=== PATIENT | female | born 1930 | race Caucasian/White ===

== ENCOUNTER 2016-10-09 03:10 | Observation (INO) | payer MEDICARE, BC ==
[2016-10-09] VITALS (15 sets, daily range): BP systolic 128–182; BP diastolic 64–93; PULSE 61–86; RESP 16–20; TEMP 97.6–98.4; O2SAT 95–99
[~2016-10-09] VITALS: Ht 152.4 cm; Wt 57.3 kg
[~2016-10-09 03:10] MED LIST: ASPI81 PO; CALCTAB75 PO; CETI10 PO; DILT240C7 PO; FURO20 PO; KLOR20TA6 PO; LEVO.05 PO; TYLE500T PO; VITA20002 PO; WARF2.5 PO
[2016-10-09] MEDS ORDERED: SODIUM CHLORIDE 0.9% FLUSH 5 ML FLUSH IVF PRN (03:30)
--- NOTE | 2016-10-09 03:32 | PD ---
HPI Chief Complaint: chest pain Time Seen by Provider: 03:22 Travel History International Travel<30 days: No Contact w/Intl Traveler<30days: No Traveled to known affect area: No History of Present Illness HPI The patient is an 85-year-old female that complains of a heaviness in her chest for 20 minutes tonight. The pain is constant and substernal. She has shortness of breath but denies any nausea or diaphoresis. The pain radiates down her arms. The pain is an 8/10. She is on Coumadin and has a pacemaker. She has a porcine aortic valve. She is on Coumadin because she has blood clots in her legs. Dr. Mckeon is her primary care physician and Dr. Yeh is her navy senior officer. She has a history of hypertension. The patient probably does not have coronary artery disease. Her last stress test was in 2010. She has never had a coronary angiogram. She does have elevated cholesterol. She does not smoke. She does not have diabetes. PFSH Past Medical History Arthritis: Yes Asthma: No Autoimmune Disease: No Blood Disorders: No Anxiety: No Depression: No Heart Rhythm Problems: No Cancer: No Cardiac Catheterization: No Cardiovascular Problems: Yes High Cholesterol: No Chemotherapy: No Chest Pain: No Congestive Heart Failure: No COPD: No Cerebrovascular Accident: No Coronary Artery Disease: Yes Diabetes: No Diminished Hearing: Yes (HEARING AIDS) Endocrine: Yes (HYPOTHYROIDISM) Gastrointestinal Disorders: Yes GERD: Yes Genitourinary: No Headaches: No Hepatitis: No Hiatal Hernia: No Hypertension: No (? ) Immune Disorder: No Kidney Stones: No Musculoskeletal: Yes Neurologic: Yes (SPINAL STENOSIS) Psychiatric: No Reproductive: No Respiratory: No Migraines: No Myocardial Infarction: No Radiation Therapy: No Renal Failure: No Seizures: No Sleep Apnea: No Thyroid Disease: No Ulcer: No Menopausal: Yes Past Surgical History Abdominal Surgery: No Appendectomy: No Cardiac Surgery: Yes (CARDIAC VALVE REPLACEMENT) Cholecystectomy: No Coronary Artery Bypass Graft: Yes (AORTIC STENOSIS- HAD VALVE REPLCED 03/2010) Ear Surgery: No Endocrine Surgery: No Eye Surgery: No Genitourinary Surgery: Yes Gynecologic Surgery: No Oral Surgery: No Thoracic Surgery: No Valve Replacement: Yes (AORTIC VALVE REPLACED 03/2010 R/T STENOSIS) Other Surgery: Yes Social History Alcohol Use: No Tobacco Use: No Substance Use: No Allergies-Medications (Allergen,Severity, Reaction): Coded Allergies: Botox (Verified Allergy, Severe, HIVES, 10/09/16) Nonsteroidal Anti-Inflammatory Agts (Verified Allergy, Severe, 10/09/16) Penicillin (Verified Allergy, Severe, 10/09/16) Sudafed (Verified Allergy, Severe, 10/09/16) Daypro (Verified Allergy, Unknown, 10/09/16) Tetanus Toxoid (Verified Allergy, Unknown, 10/09/16) Reported Meds & Prescriptions Reported Meds & Active Scripts Active Reported Sertraline (Sertraline HCl) 50 Mg Tab 50 Mg PO DAILY Vitamin B Complex (B-Complex Vitamins) 1 Tab Biotin 5,000 Mcg Subl 5,000 Mcg SL Vitamin D (Cholecalciferol) 1,000 Unit Tab 2,000 Units PO DAILY Calcium 600 with Vitamin D (Calcium Carbonate-Cholecalciferol) 600-400 mg-Unit Tab 1 Tab PO DAILY Prilosec (Omeprazole) 20 Mg Cap 20 Mg PO DAILY Aspirin 81 Mg Chew 81 Mg CHEW DAILY Potassium Chloride ER (Potassium Chloride) 20 Meq Tab 20 Meq PO BID Furosemide 20 Mg Tab 20 Mg PO DAILY Levothyroxine (Levothyroxine Sodium) 50 Mcg Tab 50 Mcg PO DAILY Warfarin 2.5 Mg Tab 2.5 Mg PO DAILY Diltiazem ER 24 HR 240 Mg Caper 240 Mg PO DAILY Review of Systems Except as stated in HPI: all other systems reviewed are Neg Physical Exam Narrative GENERAL: The patient is alert, oriented 3 and slight apparent distress with her chest discomfort. The blood pressure is 182/85 but the rest her vital signs are normal. SKIN: Warm and dry. HEAD: Atraumatic. Normocephalic. EYES: Pupils equal and round. No scleral icterus. No injection or drainage. ENT: No nasal bleeding or discharge. Mucous membranes pink and moist. NECK: Trachea midline. No JVD. CARDIOVASCULAR: Regular paced rhythm. No murmur appreciated. RESPIRATORY: No accessory muscle use. Clear to auscultation. Breath sounds equal bilaterally. GASTROINTESTINAL: Abdomen soft, non-tender, nondistended. Hepatic and splenic margins not palpable. No guarding or rebound is present. MUSCULOSKELETAL: No obvious deformities. No clubbing. No cyanosis. No edema. NEUROLOGICAL: Awake and alert. No obvious cranial nerve deficits. Motor grossly within normal limits. Normal speech. PSYCHIATRIC: Appropriate mood and affect; insight and judgment normal. Data Data Last Documented VS Vital Signs Date Time Temp Pulse Resp B/P Pulse Ox O2 Delivery O2 Flow Rate FiO2 10/09/16 04:44 18 10/09/16 04:20 70 128/64 10/09/16 04:19 97 Nasal Cannula 2 10/09/16 03:24 98.4 Orders Electrocardiogram (10/09/16 03:22) B-Type Natriuretic Peptide (10/09/16 03:22) Ckmb (Isoenzyme) Profile (10/09/16 03:22) Complete Blood Count With Diff (10/09/16 03:22) Comprehensive Metabolic Panel (10/09/16 03:22) Magnesium (Mg) (10/09/16 03:22) Prothrombin Time / Inr (Pt) (10/09/16 03:22) Troponin I (10/09/16 03:22) Ecg Monitoring (10/09/16 03:22) Iv Access Insert/Monitor (10/09/16 03:22) Oximetry (10/09/16 03:22) Oxygen Administration (10/09/16 03:22) Sodium Chloride 0.9% Flush (Ns Flush) (10/09/16 03:30) Nitroglycerin Sl (Nitrostat Sl) (10/09/16 03:30) Chest, Pa & Lat (10/09/16 03:22) CKMB (10/09/16 03:35) CKMB% (10/09/16 03:35) Admit Order (Ed Use Only) (10/09/16 04:59) Labs Laboratory Tests Test 10/09/16 03:35 White Blood Count 7.9 TH/MM3 Red Blood Count 5.23 MIL/MM3 Hemoglobin 14.6 GM/DL Hematocrit 44.1 % Mean Corpuscular Volume 84.2 FL Mean Corpuscular Hemoglobin 27.9 PG Mean Corpuscular Hemoglobin 33.1 % Concent Red Cell Distribution Width 15.3 % Platelet Count 219 TH/MM3 Mean Platelet Volume 8.2 FL Neutrophils (%) (Auto) 37.2 % Lymphocytes (%) (Auto) 47.0 % Monocytes (%) (Auto) 9.8 % Eosinophils (%) (Auto) 5.2 % Basophils (%) (Auto) 0.8 % Neutrophils # (Auto) 2.9 TH/MM3 Lymphocytes # (Auto) 3.7 TH/MM3 Monocytes # (Auto) 0.8 TH/MM3 Eosinophils # (Auto) 0.4 TH/MM3 Basophils # (Auto) 0.1 TH/MM3 CBC Comment DIFF FINAL Differential Comment Prothrombin Time 18.6 SEC Prothromb Time International 1.6 RATIO Ratio Sodium Level 145 MEQ/L Potassium Level 3.4 MEQ/L Chloride Level 108 MEQ/L Carbon Dioxide Level 25.9 MEQ/L Anion Gap 11 MEQ/L Blood Urea Nitrogen 17 MG/DL Creatinine 1.10 MG/DL Estimat Glomerular Filtration 47 ML/MIN Rate Random Glucose 94 MG/DL Calcium Level 9.3 MG/DL Magnesium Level 2.3 MG/DL Total Bilirubin 0.5 MG/DL Aspartate Amino Transf 22 U/L (AST/SGOT) Alanine Aminotransferase 18 U/L (ALT/SGPT) Alkaline Phosphatase 83 U/L Total Creatine Kinase 103 U/L Creatine Kinase MB 1.7 NG/ML Troponin I LESS THAN 0.02 NG/ML B-Type Natriuretic Peptide 106 PG/ML Total Protein 7.7 GM/DL Albumin 3.7 GM/DL [facility] Medical Decision Making Medical Screen Exam Complete: Yes Emergency Medical Condition: Yes Medical Record Reviewed: Yes Interpretation(s) The EKG shows a paced rhythm with a rate of 89. March or the EKG shows a sinus rhythm. She appears to have a left bundle-branch block. No acute changes noted. The CBC is essentially normal. The complete metabolic profile shows a potassium 3.4 with GFR 47 and creatinine 1.1 but is otherwise unremarkable. The BNP is 106. The troponin I is normal. The ProTime is 18.6 with an INR 1.6. I do not have any EKGs after 2013 to compare today's EKG with. Differential Diagnosis Chest wall pain, pleuritic pain, esophageal pain, gastrointestinal pain, acute coronary syndrome, chest pain etiology undetermined Narrative Course It is now 0449 and the patient's chest pain has gone down to approximately 6/10. Procedures EKG Prior to Arrival: No Physician Communication Physician Communication I discussed the patient with Dr. Heredia who recommended that the patient be admitted to the hospitalist and Dr. Yeh be consulted in the morning. I discussed the patient also with Dr. Cortez will admit the patient here at [place]. Diagnosis Primary Impression: Chest pain of unknown etiology Sven Summers MD Oct 09, 2016 03:32
[2016-10-09] MEDS: NITROGLYCERIN 0.4 MG SL 25 TABS/BTL SL SCH ×3 (03:54→04:27)
[2016-10-09 03:57] LABS: AUTOMATED NEUTROPHIL # 2.9 TH/MM3 (1.8-7.7); BASOPHIL # 0.1 TH/MM3 (0-0.2); BASOPHIL % 0.8 % (0.0-2.0); EOSINOPHIL # 0.4 TH/MM3 (0-0.4); EOSINOPHIL % 5.2 % (0.0-4.0); HEMATOCRIT 44.1 % (35.0-46.0); HEMO FLAGS DIFF FINAL; LYMPHOCYTE # 3.7 TH/MM3 (1.0-4.8); MEAN CELL VOLUME 84.2 FL (80.0-100.0); MEAN CORPUSCULAR HEMOGLOBIN 27.9 PG (27.0-34.0); MEAN CORPUSCULAR HGB CONC 33.1 % (32.0-36.0); MONO % 9.8 % (0.0-8.0); NEUT % 37.2 % (16.0-70.0); PLATELET COUNT 219 TH/MM3 (150-450); RED BLOOD COUNT 5.23 MIL/MM3 (4.00-5.30); RED CELL DISTRIBUTION WIDTH 15.3 % (11.6-17.2); WHITE BLOOD COUNT 7.9 TH/MM3 (4.0-11.0)
[2016-10-09 04:03] LABS: CHLORIDE 108 MEQ/L (98-107); POTASSIUM 3.4 MEQ/L (3.5-5.1); SODIUM (NA) 145 MEQ/L (136-145)
[2016-10-09 04:06] LABS: INTERNATIONAL NORMALIZED RATIO 1.6 RATIO; PROTHROMBIN TIME - PATIENT 18.6 SEC (9.8-11.6)
[2016-10-09 04:08] LABS: ANION GAP 11 MEQ/L (5-15); BICARBONATE 25.9 MEQ/L (21.0-32.0); MAGNESIUM 2.3 MG/DL (1.5-2.5)
[2016-10-09 04:09] LABS: BLOOD UREA NITROGEN 17 MG/DL (7-18)
[2016-10-09 04:11] LABS: ALT (GPT) 18 U/L (10-53); AST (GOT) 22 U/L (15-37)
[2016-10-09 04:12] LABS: GLOMERULAR FILTRATION RATE 47 ML/MIN (>89)
[2016-10-09 04:13] LABS: TOTAL BILIRUBIN ADULT 0.5 MG/DL (0.2-1.0)
[2016-10-09 04:14] LABS: ALKALINE PHOSPHATASE 83 U/L (45-117); CREATINE KINASE 103 U/L (26-192)
[2016-10-09] MEDS ORDERED: ASPI81CH CHEW (04:16)
[2016-10-09] MEDS ORDERED: CALC1TAB87 PO (04:16)
[2016-10-09] MEDS ORDERED: POTA-163 PO (04:16)
[2016-10-09] MEDS ORDERED: FURO20TA PO (04:16)
[2016-10-09] MEDS ORDERED: WARF-18 PO (04:16)
[2016-10-09] MEDS ORDERED: PRIL20CA9 PO (04:16)
[2016-10-09] MEDS ORDERED: LEVO50TA4 PO (04:16)
[2016-10-09] MEDS ORDERED: DILT-48 PO (04:16)
[2016-10-09] MEDS ORDERED: VITA100064 PO (04:16)
[2016-10-09] MEDS ORDERED: BIOT1SUB SL (04:18)
[2016-10-09] MEDS ORDERED: SERT-132 PO (04:18)
[2016-10-09] MEDS ORDERED: VITATAB11 (04:18)
[2016-10-09 04:27] LABS: CKMB 1.7 NG/ML (0.5-3.6)
--- NOTE | 2016-10-09 04:29 | RADHPO ---
EXAM DATE/TIME: 10/09/2016 03:42 [facility] COMPARISON: CHEST PA & LAT, December 11, 2013, 9:17. INDICATIONS : Chest pain. MEDICAL HISTORY : Hypertension. SURGICAL HISTORY : Pacemaker. Aortic valve replacement ENCOUNTER: Initial ACUITY: 1 day PAIN SCORE: 8/10 LOCATION: Bilateral chest FINDINGS: Cardiomegaly and sternotomy wires are again seen. There is hyperinflation. Pacer device from a left s ubclavian transvenous approach is noted. No consolidation or effusion. CONCLUSION: No acute disease. Reji Grubbs MD on October 09, 2016 at 4:27 Board Certified Radiologist. This report was verified electronically.
[2016-10-09] MEDS ORDERED: SODIUM CHLORIDE 0.9% FLUSH 5 ML FLUSH FLUSH PRN (05:45)
[2016-10-09] MEDS ORDERED: NALOXONE HCL 0.4 MG/ML AMP IV PRN (05:45)
[2016-10-09 07:18] LABS: CREATINE KINASE 86 U/L (26-192)
[2016-10-09] MEDS ORDERED: SERTRALINE HCL 50 MG TAB PO SCH (11:00)
--- NOTE | 2016-10-09 11:17 | EKG ---
Date Performed: 10/09/2016 Time Performed: 03:14:02 PTAGE: 85 years EKG: Demand ventricular pacing. Left axis deviation Abnormal ECG PREVIOUS TRACING : 12/11/2013 08.57 DOCTOR: Alejandro Delgado Interpretating Date/Time 10/09/2016 11:15:55
[2016-10-09] MEDS ORDERED: PANTOPRAZOLE SOD 20 MG DELAYED RELEASE TAB PO SCH (11:30)
--- NOTE | 2016-10-09 12:32 | MB ---
cc: CARISSA YEH M.D., SOUHI[place] DATE OF CONSULTATION: 10/09/2016 REASON FOR CONSULTATION: Cardiology consultation. HISTORY OF PRESENT ILLNESS: Thank you Dr. Cervantes for asking us to see this very pleasant patient that had chest pain for 20 minutes. At this point she does not have any chest pain, her heart rate is about 70, she has a history of deep venous thrombosis after aortic valve surgery. She had a stress test in 2010. She does not smoke. PAST MEDICAL HISTORY: 1. Positive for arthritis. 2. Asthma. 3. Positive aortic stenosis with aortic valve stenosis. 4. Biopsy studies of 2009. 5. Congestive heart failure 6. Mitral regurgitation. 7. Gastroesophageal reflux disease 8. Deep venous thrombosis 9. Tricuspid insufficiency 10. Dental implant. PAST SURGICAL HISTORY: Pacemaker placement. FAMILY HISTORY: Positive for daughter having angina. Other problems include; hypothyroidism, deafness, spinal stenosis. SOCIAL HISTORY: Nonsmoker, non-drinker, no drugs. ALLERGIES PENICILLIN BOTOX NONSTEROIDAL ANTI-INFLAMMATORY DRUGS SUDAFED DAYQUIL TETANUS REVIEW OF SYSTEMS Denies seizure, headache, pulmonary, the remaining components negative. PHYSICAL EXAMINATION: VITAL SIGNS : Pulse 70, Blood pressure 128/64, respiratory rate 18. HEENT: Eyes show no xanthelasma. Mouth shows no cyanosis or pallor. NECK: No jugular venous distention. HEART: She had to two heart sounds, no murmur. CHEST: The chest was clear. ABDOMEN: The abdomen was soft, no hepatosplenomegaly. EXTREMITIES: No evidence of edema. NEUROLOGIC: Exam grossly intact. SKIN: Intact. NECK: Sternotomy, on palpation of the chest did not reduce this pain. LABORATORY FINDINGS: White count 7.9, hemoglobin 14.6. Platelet count 219,000. RADIOLOGIC: Electrocardiogram today showed a paced rhythm with a rate of 89. ASSESSMENT AND PLAN: We will do a D-Dimer to exclude pulmonary embolism. If this is positive we may have to consider a CT angiogram. She has a pacemaker so she will not be tachycardic and has a history of deep venous thrombosis. Thank you for asking us to see this very pleasant lady. Carissa Yeh MD, FRCP,[facility] JUAN/jessica /10:24 AM /12:26 PM
[2016-10-09] MEDS: DILTIAZEM-CD 240 MG CAP ER PO SCH (12:55)
[2016-10-09] MEDS: PANTOPRAZOLE SOD 20 MG DELAYED RELEASE TAB PO SCH (12:56)
[2016-10-09] MEDS: POTASSIUM CHLORIDE 20 MEQ CONTROLLED RELEASE TAB PO SCH ×2 (12:56→20:28)
[2016-10-09] MEDS: LEVOTHYROXINE SODIUM 50 MCG TAB PO SCH (12:56)
[2016-10-09] MEDS: ASPIRIN 81 MG CHEW TAB CHEW SCH (12:56)
[2016-10-09] MEDS: FUROSEMIDE 20 MG TAB PO SCH (12:57)
[2016-10-09] MEDS: SODIUM CHLORIDE 0.9% FLUSH 5 ML FLUSH FLUSH SCH ×2 (12:57→20:29)
--- NOTE | 2016-10-09 14:59 | HHI.HP ---
HPI Service [facility] Hospitalists Primary Care Physician Sarah Alaniz MD Admission Diagnosis chest pain etiology undetermined Diagnoses: Chief Complaint: Chest pain Shortness of breath Travel History International Travel<30 Days: No Contact w/Intl Traveler <30 Da: No Traveled to Known Affected Are: No History of Present Illness This is a 85-year-old female with a past medical history significant for previous pacemaker implantation, hypertension, history of DVT following aortic valve surgery currently on Coumadin , dyslipidemia, hypothyroidism and GERD who presents to [facility] ED with complaints of chest pain. Patient states she awoke at 2:00 this morning with elevated blood pressure with systolic of 180 and substernal chest heaviness as well as an achy sensation in both arms. Patient reports associated shortness of breath. She denies any aggravating factors but states she did get some relief after taking 3 nitroglycerin after arriving at the ED. She denies any associated headache, vision changes, weakness, cough, sore throat, palpitations, nausea, vomiting, abdominal pain, hematuria, dysuria, hematochezia or melena. She has complaints of some pain in the center of her upper back. She does report some intermittent dizziness which is not new and not associated with her onset of chest pain this morning. She also reports occasional swelling of the hands and feet as well as some achiness in the hands and she has not been able to wear her rings but this is not new. She had a previous stress test in 2010. In the ED, patient's EKG showed a paced rhythm with a heart rate of 89. Dr. Yeh has already been consulted. At his request, a d-dimer was ordered and was elevated. Chest x-ray is unremarkable. BNP 106. Review of Systems Constitutional: COMPLAINS OF: Dizziness (intermittent, not currently symptomatic), DENIES: Diaphoretic episodes, Fever, Chills Endocrine: DENIES: Polydipsia, Polyuria Eyes: DENIES: Blurred vision, Diplopia, Vision loss Ears, nose, mouth, throat: DENIES: Nasal discharge, Throat pain, Running Nose, Sinus Pain Respiratory: COMPLAINS OF: Shortness of breath (as stated in the history of present illness), DENIES: Cough, Wheezing, Hemoptysis, Sputum production Cardiovascular: COMPLAINS OF: Chest pain (as stated in the history of present illness), Lower Extremity Edema (intermittent, chronic), DENIES: Palpitations, Syncope Gastrointestinal: DENIES: Abdominal pain, Black stools, Bloody stools, Diarrhea , Nausea, Vomiting Genitourinary: DENIES: Hematuria, Dysuria Musculoskeletal: COMPLAINS OF: Muscle aches (occasional swelling and aches in the hands), DENIES: Back pain, Neck pain Integumentary: DENIES: Pruritus, Rash Hematologic/lymphatic: DENIES: Lymphadenopathy Immunologic/allergic: DENIES: Urticaria Neurologic: DENIES: Headache, Localized weakness, Paresthesias, Seizures, Speech Problems Psychiatric: DENIES: Confusion, Mood changes, Depression Past Family Social History Past Medical History History of aortic stenosis status post porcine aortic valve replacement CHF History of DVT following aortic valve replacement surgery Hypertension Dyslipidemia Hypothyroidism Spinal stenosis Osteoarthritis GERD Past Surgical History Porcine aortic valve replacement approximately 10 years ago Pacemaker implantation Reported Medications Sertraline (Sertraline HCl) 50 Mg Tab 50 Mg PO DAILY Vitamin B Complex (B-Complex Vitamins) 1 Tab Biotin 5,000 Mcg Subl 5,000 Mcg SL Vitamin D (Cholecalciferol) 1,000 Unit Tab 2,000 Units PO DAILY Calcium 600 with Vitamin D (Calcium Carbonate-Cholecalciferol) 600-400 mg-Unit Tab 1 Tab PO DAILY Prilosec (Omeprazole) 20 Mg Cap 20 Mg PO DAILY Aspirin 81 Mg Chew 81 Mg CHEW DAILY Potassium Chloride ER (Potassium Chloride) 20 Meq Tab 20 Meq PO BID Furosemide 20 Mg Tab 20 Mg PO DAILY Levothyroxine (Levothyroxine Sodium) 50 Mcg Tab 50 Mcg PO DAILY Warfarin 2.5 Mg Tab 2.5 Mg PO DAILY Diltiazem ER 24 HR 240 Mg Caper 240 Mg PO DAILY Allergies: Coded Allergies: Botox (Verified Allergy, Severe, HIVES, 10/09/16) Nonsteroidal Anti-Inflammatory Agts (Verified Allergy, Severe, 10/09/16) Penicillin (Verified Allergy, Severe, 10/09/16) Sudafed (Verified Allergy, Severe, 10/09/16) Daypro (Verified Allergy, Unknown, 10/09/16) Tetanus Toxoid (Verified Allergy, Unknown, 10/09/16) Active Ordered Medications Current Medications Medications (Trade) Dose Ordered Sig/Mathew Route Start Time Stop Time Status Last Admin (NS Flush) 2 ml UNSCH PRN FLUSH 10/09/16 05:45 (NS Flush) 2 ml BID FLUSH 10/09/16 09:00 10/09/16 12:57 (Narcan Inj) 0.4 mg UNSCH PRN IV 10/09/16 05:45 (Aspirin Chew) 81 mg DAILY CHEW 10/09/16 11:00 10/09/16 12:56 (Oscal-D 250-125) 250 mg DAILY PO 10/10/16 09:00 (Cardizem Cd) 240 mg DAILY PO 10/09/16 11:00 10/09/16 12:55 (Lasix) 20 mg DAILY PO 10/09/16 11:00 10/09/16 12:57 (Synthroid) 50 mcg DAILY@0600 PO 10/09/16 11:00 10/09/16 12:56 (KCl) 20 meq BID PO 10/09/16 11:00 10/09/16 12:56 (Zoloft) 50 mg DAILY PO 10/09/16 11:00 10/09/16 12:56 (Coumadin) 2.5 mg DAILY@1600 PO 10/09/16 16:00 (Coumadin Booklet) 1 ONCE ONCE XX 10/09/16 16:00 10/09/16 16:01 (Protonix) 20 mg DAILY PO 10/09/16 11:45 10/09/16 12:56 Family History Father, previous [place] age 65 Mother, age 94 Social History Patient has a remote history of infrequent tobacco use 30-40 years ago. She denies any alcohol consumption or illicit drug use. She is and lives with her . Physical Exam Vital Signs Vital Signs Date Time Temp Pulse Resp B/P Pulse Ox O2 Delivery O2 Flow Rate FiO2 10/09/16 12:00 97.6 67 20 144/84 99 10/09/16 08:04 64 10/09/16 08:00 98.1 67 20 156/78 98 10/09/16 07:02 18 98 Nasal Cannula 2 10/09/16 07:02 98 Nasal Cannula 10/09/16 07:02 61 18 154/73 98 Nasal Cannula 2 10/09/16 07:02 98 Nasal Cannula 2 10/09/16 06:40 69 18 151/76 98 Nasal Cannula 2 10/09/16 05:35 66 18 145/93 97 Nasal Cannula 2 10/09/16 04:44 18 10/09/16 04:20 70 128/64 10/09/16 04:19 66 18 143/71 97 Nasal Cannula 2 10/09/16 04:02 73 18 151/69 97 Nasal Cannula 2 10/09/16 03:55 65 161/77 10/09/16 03:41 18 95 Room Air 10/09/16 03:41 95 Room Air 10/09/16 03:29 85 18 95 Room Air 10/09/16 03:24 98.4 86 18 182/85 95 Physical Exam GENERAL: This is a well-nourished, well-developed patient, in no apparent distress. A&Ox3. SKIN: No rashes, ecchymoses or lesions. Cool and dry. HEAD: Atraumatic. Normocephalic. No temporal or scalp tenderness. EYES: Pupils equal round and reactive. Extraocular motions intact. No scleral icterus. No injection or drainage. ENT: Nose without bleeding, purulent drainage or septal hematoma. Throat without erythema, tonsillar hypertrophy or exudate. Uvula midline. Airway patent. NECK: Trachea midline. No JVD or lymphadenopathy. Supple, nontender, no meningeal signs. CARDIOVASCULAR: Regular rate and rhythm without gallops, or rubs. 3/6 systolic murmur appreciated with increased S2. RESPIRATORY: Clear to auscultation. Breath sounds equal bilaterally. No wheezes , rales, or rhonchi. GASTROINTESTINAL: Abdomen soft, non-tender, nondistended. No hepato-splenomegaly , or palpable masses. No guarding. MUSCULOSKELETAL: Extremities without clubbing, cyanosis, or edema. No joint tenderness, effusion, or edema noted. No calf tenderness. NEUROLOGICAL: Awake and alert. Able to move all 4 extremities. No focal neurologic deficits appreciated on exam. Laboratory Laboratory Tests Test 10/09/16 10/09/16 10/09/16 03:35 06:40 09:35 White Blood Count 7.9 Red Blood Count 5.23 Hemoglobin 14.6 Hematocrit 44.1 Mean Corpuscular Volume 84.2 Mean Corpuscular Hemoglobin 27.9 Mean Corpuscular Hemoglobin 33.1 Concent Red Cell Distribution Width 15.3 Platelet Count 219 Mean Platelet Volume 8.2 Neutrophils (%) (Auto) 37.2 Lymphocytes (%) (Auto) 47.0 Monocytes (%) (Auto) 9.8 Eosinophils (%) (Auto) 5.2 Basophils (%) (Auto) 0.8 Neutrophils # (Auto) 2.9 Lymphocytes # (Auto) 3.7 Monocytes # (Auto) 0.8 Eosinophils # (Auto) 0.4 Basophils # (Auto) 0.1 CBC Comment DIFF FINAL Differential Comment Prothrombin Time 18.6 Prothromb Time International 1.6 Ratio Sodium Level 145 Potassium Level 3.4 Chloride Level 108 Carbon Dioxide Level 25.9 Anion Gap 11 Blood Urea Nitrogen 17 Creatinine 1.10 Estimat Glomerular Filtration 47 Rate Random Glucose 94 Calcium Level 9.3 Magnesium Level 2.3 Total Bilirubin 0.5 Aspartate Amino Transf 22 (AST/SGOT) Alanine Aminotransferase 18 (ALT/SGPT) Alkaline Phosphatase 83 Total Creatine Kinase 103 86 83 Creatine Kinase MB 1.7 Troponin I LESS THAN 0.02 LESS THAN 0.02 0.02 B-Type Natriuretic Peptide 106 Total Protein 7.7 Albumin 3.7 D-Dimer Quantitative (PE/DVT) 0.65 Result Diagram: 10/09/16 0335 10/09/16 0335 Imaging Last 48 hours Impressions Chest X-Ray 10/09/16 0322 Signed Impressions: Service Date/Time: Sunday, October 09, 2016 03:42 - CONCLUSION: No acute disease. Reji Grubbs MD Assessment and Plan Assessment and Plan 85-year-old female with a past medical history significant for previous pacemaker implantation, hypertension, history of DVT following aortic valve surgery currently on Coumadin, dyslipidemia, hypothyroidism and GERD who presents to [facility] ED with complaints of chest pain. Chest pain with typical and atypical features - Admit to observation - Dr. Yeh consulted in the ED and has already evaluated patient, very much appreciate his assistance. Discussed with Dr. Yeh who does not believe further cardiac workup is indicated at this time and is concerned about possible pulmonary embolus. D-dimer was ordered and was elevated. CTA pending. - Troponins negative 3 - 81 mg aspirin daily - Telemetry - Supplemental oxygen Hypokalemia - po repletion and am labs to monitor MEETA - Mild - Avoid nephrotoxic agents - am labs to monitor trend Hypertension - Resume home meds - Monitor BP CHF - Resume home Lasix dose - Monitor electrolytes, mild hypokalemia on admission, resume home by mouth potassium repletion - No evidence of fluid overload on examination, we'll continue to monitor History of DVT - Continue home warfarin dose - INR 1.6, not at goal - Recheck in a.m. Hypothyroidism - Resume home levothyroxine - Obtain TSH level GERD - Resume home Protonix DVT prophylaxis - Patient on warfarin Written by Laurie Murphy PA-C acting as scribe for Dr. Cervantes on 10/09/16 at 12:43. Laurie Murphy Oct 09, 2016 14:59 Laurie Murphy Oct 09, 2016 14:59
[2016-10-09] MEDS ORDERED: IOHEXOL 350 MG/ML 10 ML VIAL (for RAD DIAG) IV ONE (15:19)
[2016-10-09] MEDS ORDERED: WARFARIN SOD 2.5 MG TAB PO SCH (16:00)
--- NOTE | 2016-10-09 16:18 | RADHPO ---
EXAM DATE/TIME: 10/09/2016 15:02 [facility] COMPARISON: No previous studies available for comparison. INDICATIONS : Substernal chest pain and short of breath. IV CONTRAST: 75 cc Omnipaque 350 (iohexol) IV RADIATION DOSE: 5.54 CTDIvol (mGy) MEDICAL HISTORY : Cardiovascular disease. Hypertension. Deep venous thrombosis.Anticoagulant therapy. SURGICAL HISTORY : CABG Aortic valve replacemrnt. ENCOUNTER: Initial ACUITY: 1 day PAIN SCALE: 4/10 LOCATION: chest TECHNIQUE: Volumetric scanning of the chest was performed using a pulmonary embolism protocol MIP images were re constructed. Using automated exposure control and adjustment of the mA and/or kV according to patien t size, radiation dose was kept as low as reasonably achievable to obtain optimal diagnostic quality images. FINDINGS: PULMONARY ARTERIES: No filling defects are seen in the pulmonary arteries through the segmental level. LUNGS: Mild scarring or atelectasis in the lung bases. PLEURAE: There is no pleural thickening or pleural effusion. 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 No evidence of mediastinal mass or adenopathy. MUSCULOSKELETAL: Within normal limits for patient age. MISCELLANEOUS: The visualized upper abdominal organs demonstrate no acute abnormality. CONCLUSION: No evidence of pulmonary embolism Jerad Zambrano MD on October 09, 2016 at 15:30 Board Certified Radiologist. This report was verified electronically.
[2016-10-10] VITALS: BP 115/68; PULSE 79; RESP 17; TEMP 96.6; O2SAT 97
[2016-10-10 04:00] VITALS: BP 112/66; PULSE 87; RESP 17; TEMP 97.6; O2SAT 97
[2016-10-10] MEDS: LEVOTHYROXINE SODIUM 50 MCG TAB PO SCH (05:07)
[2016-10-10 07:50] LABS: INTERNATIONAL NORMALIZED RATIO 1.7 RATIO; PROTHROMBIN TIME - PATIENT 19.2 SEC (9.8-11.6)
[2016-10-10 07:52] LABS: BICARBONATE 26.8 MEQ/L (21.0-32.0)
[2016-10-10 08:00] VITALS: BP 131/64; PULSE 63; RESP 20; TEMP 96.9; O2SAT 95
[2016-10-10] MEDS: PANTOPRAZOLE SOD 20 MG DELAYED RELEASE TAB PO SCH (08:03)
[2016-10-10] MEDS: ASPIRIN 81 MG CHEW TAB CHEW SCH (08:03)
[2016-10-10] MEDS: POTASSIUM CHLORIDE 20 MEQ CONTROLLED RELEASE TAB PO SCH (08:03)
[2016-10-10] MEDS: DILTIAZEM-CD 240 MG CAP ER PO SCH (08:03)
[2016-10-10] MEDS: FUROSEMIDE 20 MG TAB PO SCH (08:04)
[2016-10-10] MEDS: SODIUM CHLORIDE 0.9% FLUSH 5 ML FLUSH FLUSH SCH (08:08)
[2016-10-10] MEDS ORDERED: CALCIUM/VITAMIN D 250 MG/125 U TAB PO SCH (09:00)
--- NOTE | 2016-10-10 11:27 | HHI.PR ---
Subjective Remarks Stable laying in bed, at the bedside No chest pain or short of breath today CAT scan of the chest came back later last night negative for PE yesterday Objective Vitals Vital Signs Date Time Temp Pulse Resp B/P Pulse Ox O2 Delivery O2 Flow Rate FiO2 10/10/16 08:00 96.9 63 20 131/64 95 10/10/16 04:00 97.6 87 17 112/66 97 10/10/16 00:00 96.6 79 17 115/68 97 10/09/16 20:37 74 10/09/16 20:00 98.2 75 16 150/74 96 10/09/16 16:00 97.9 69 18 150/79 97 10/09/16 12:00 97.6 67 20 144/84 99 I/O 10/09/16 10/09/16 10/09/16 10/10/16 10/10/16 10/10/16 07:00 15:00 23:00 07:00 15:00 23:00 Intake Total 42 ml 0 ml 240 ml Balance 42 ml 0 ml 240 ml Intake Oral 0 ml 240 ml IV Total 42 ml 0 ml 0 ml # Voids 5 1 2 # Bowel Movements 1 Result Diagram: 10/09/16 0335 10/10/16 0720 Objective Remarks GENERAL: This is a well-nourished, well-developed patient, in no apparent distress. SKIN: No rashes, warm and dry HEAD: Atraumatic. Normocephalic. EYES: Pupils equal round and reactive. Extraocular motions intact. No scleral icterus. ENT: Nose without bleeding, or drainage, Airway patent. NECK: Trachea midline. Supple CARDIOVASCULAR: Regular rate and rhythm without gallops, or rubs. 3/6 systolic murmur appreciated with increased S2. RESPIRATORY: Fair air entry bilaterally. No wheezes, rales, or rhonchi. GASTROINTESTINAL: Abdomen soft, non-tender, nondistended. Positive bowel sounds MUSCULOSKELETAL: Extremities without clubbing, cyanosis, or edema. Pedal pulses appreciated NEUROLOGICAL: Awake and alert. Moves all extremity. 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 Chest pain with typical and atypical features - Admit to observation - Dr. Yeh consulted in the ED and has already evaluated patient, very much appreciate his assistance. Discussed with Dr. Yeh who does not believe further cardiac workup is indicated at this time and is concerned about possible pulmonary embolus. D-dimer was ordered and was elevated. CTA showed no PE - Troponins negative 3 - 81 mg aspirin daily - Telemetry - Supplemental oxygen Hypokalemia - po repletion and am labs to monitor MEETA - Mild - Avoid nephrotoxic agents - am labs to monitor trend Hypertension - Resume home meds - Monitor BP CHF - Resume home Lasix dose - Monitor electrolytes, mild hypokalemia on admission, resume home by mouth potassium repletion - No evidence of fluid overload on examination, we'll continue to monitor History of DVT - Continue home warfarin dose - INR 1.6, not at goal - Recheck in a.m. Hypothyroidism - Resume home levothyroxine - Obtain TSH level GERD - Resume home Protonix DVT prophylaxis - Patient on warfarin Discharge Planning Discharge patient to home Condition on discharge: Improved Healthy heart Diet as tolerated Ad Kylie activity Rx written: See med rec Follow-up with primary care physician in one week, Dr. Yeh in 3 days Brooke Cervantes MD Oct 10, 2016 11:27
== END 2016-10-10 12:04 | disposition home or self-care (01) ==
LOC: PHED 03:10 → PHEDA 05:01 → INTOOBSV 05:01 → PH3A 07:38
PROVIDERS: ADMIT Hospitalist; ATTEND Hospitalist
DX: R07.89 Other chest pain (principal); E87.6 Hypokalemia; N17.9 Acute kidney failure, unspecified; I11.0 Hypertensive heart disease with heart failure; E78.5 Hyperlipidemia, unspecified; K21.9 Gastro-esophageal reflux disease without esophagitis; J45.909 Unspecified asthma, uncomplicated; E03.9 Hypothyroidism, unspecified; F17.200 Nicotine dependence, unspecified, uncomplicated; M19.90 Unspecified osteoarthritis, unspecified site; I25.10 Atherosclerotic heart disease of native coronary artery without angina pectoris; I08.1 Rheumatic disorders of both mitral and tricuspid valves; Z88.6 Allergy status to analgesic agent; Z88.0 Allergy status to penicillin; Z88.7 Allergy status to serum and vaccine; Z88.8 Allergy status to other drugs, medicaments and biological substances; Z95.0 Presence of cardiac pacemaker; Z86.718 Personal history of other venous thrombosis and embolism; Z95.3 Presence of xenogenic heart valve; Z95.1 Presence of aortocoronary bypass graft; Z79.82 Long term (current) use of aspirin; Z79.01 Long term (current) use of anticoagulants
CPT/HCPCS: 71020; 71275; 80048; 80053; 82550; 82552; 83735; 83880; 84484; 85025; 85379; 85610; 93005; G0378; G8987-GP; G8988-GP; Q9967